=== PATIENT | male | born 1945 | race Caucasian/White ===

== ENCOUNTER 2019-11-19 11:42 | Outpatient (CLI) | payer MEDICARE ==
[2019-11-19 14:14] LABS: #Basophils 0.1 thou/uL (0.0-0.2); #Eosinphils 0.4 thou/uL (0.0-0.7); #Lymphocytes 1.5 thou/uL (1.20-3.40); #Monocytes 0.8 thou/uL (0.11-0.59); #Neutrophils 4.5 thou/uL (1.40-6.50); %Basophils 0.9 % (0.0-1.0); %Eosinophils 5.3 % (0.0-10.0); %Lymphocytes 20.7 % (21.0-51.0); %Monocytes 11.5 % (0.0-10.0); %Neutrophils 61.6 % (42.0-75.0); Hemoglobin 16.5 g/dL (14.0-18.0); Mean Corpuscular HGB CONC 34.7 g/dL (32.0-36.0); Mean Corpuscular Hemoglobin 32.6 pg (27.0-31.0); Mean Corpuscular Volume 93.8 fL (78.0-98.0); Mean Platelet Volume 9.4 fL (7.4-10.4); Platelet Count 193 thou/uL (130-400); RBC Distribution Width 12.2 % (11.5-14.5); Red Blood Cell (RBC) Count 5.06 mill/uL (4.70-6.10); White Blood Cell (WBC) Count 7.2 thou/uL (4.8-10.8)
[2019-11-19 14:25] LABS: ALT (SGPT) 25 U/L (8-55); AST (SGOT) 24 U/L (5-34); Albumin 4.6 g/dL (3.4-4.8); Alkaline Phosphatase 63 U/L (40-110); Anion Gap 15 mmol/L (10-20); BUN (Urea Nitrogen) 27 mg/dL (8.4-25.7); Bilirubin, Total 1.2 mg/dL (0.2-1.2); Calc. Creatinine Clearance 0 mL/min (70-130); Calcium 9.7 mg/dL (7.8-10.44); Carbon Dioxide 21 mmol/L (23-31); Chloride 104 mmol/L (98-107); Estimated GFR-MDRD 53; Globulin 2.6 g/dL (2.4-3.5); Glucose 86 mg/dL (83-110); Potassium 4.6 mmol/L (3.5-5.1); Protein, Total 7.2 g/dL (5.8-8.1); Sodium 135 mmol/L (136-145)
--- NOTE | 2019-11-20 14:41 | EKG ---
Test Reason : Blood Pressure : / mmHG Vent. Rate : 056 BPM Atrial Rate : 056 BPM P-R Int : 180 ms QRS Dur : 086 ms QT Int : 428 ms P-R-T Axes : 007 044 -27 degrees QTc Int : 413 ms Sinus bradycardia Anterior infarct , age undetermined cannot be excluded T wave abnormality, consider inferior ischemia Abnormal ECG Confirmed by LESA MENDOZA ([id number]) on 11/20/2019 2:41:12 PM Referred By: DENYS Confirmed By:LESA MENDOZA
== END 2019-11-19 11:43 | disposition home or self-care (01) ==
LOC: LABBT 11:42
PROVIDERS: ATTEND Surgery
DX: Z01.818 Encounter for other preprocedural examination (principal); K40.20 Bilateral inguinal hernia, without obstruction or gangrene, not specified as recurrent
CPT/HCPCS: 80053; 85025; 93005; 93010

== ENCOUNTER 2019-11-22 07:00 | Day surgery (SDC) | payer MEDICARE ==
[2019-11-19 11:43] VITALS: BMI 26.6
[2019-11-22] MEDS ORDERED: Bupivacaine 0.25% HCL 30 ML VIAL ONE (08:34)
[2019-11-22] MEDS ORDERED: Lidocaine 1% w/Epinephrine 1:100K 20 ML VIAL ONE (08:34)
[2019-11-22] MEDS ORDERED: Fentanyl 100 MCG/2 ML VIAL ONE ×2 (08:39→10:56)
[2019-11-22] MEDS ORDERED: Midazolam HCl 2 mg/2 ml Vial ONE (08:39)
--- NOTE | 2019-11-22 13:26 | OP ---
DATE OF PROCEDURE: 11/22/2019 PREOPERATIVE DIAGNOSIS: Bilateral inguinal hernia. PROCEDURE PERFORMED: Diagnostic laparoscopy, open bilateral inguinal hernia repair. INDICATIONS FOR PROCEDURE: A 74-year-old male, who had painful bilateral inguinal hernias that were getting worse. He had had a previous appendectomy through a paramedian incision. FINDINGS: He had dense adhesions intraabdominally preventing laparoscopic repair, went ahead and did a bilateral open procedure. DESCRIPTION OF PROCEDURE: After informed consent was obtained, the patient was taken to the operating room, given general endotracheal anesthesia, placed in the supine position. His abdomen was prepped and draped in usual fashion. Local anesthesia was infiltrated subcutaneously and deep. A 5 mm incision was performed, left lateral abdomen. Veress needle was inserted, drop test was performed. Pneumoperitoneum was created to a volume of 2 L of carbon dioxide. Utilizing a bladeless 5-mm trocar and 0-degree laparoscope, direct visual entry into abdominal cavity was performed. Pneumoperitoneum was created to a pressure of 15 mmHg and a 0-degree 5 mm scope inserted. Unfortunately, he had extensive adhesions intraabdominally. For this reason, we elected to abort the laparoscopic approach and go ahead and do bilateral open inguinal hernia repairs. Starting on the left, local anesthesia was infiltrated subcutaneously and deep. A transverse inguinal incision was performed, subcu was divided sharply. The fascia of external oblique was incised in direction of its fibers through the external ring. Spermatic cord was isolated with a Liberty drain. There was quite a large left inguinal hernia that was an indirect left inguinal hernia. The hernia sac was dissected from surrounding cord structures down to the internal ring and reduced. Reduction was maintained utilizing a PHS hernia system. The posterior layer was placed in the preperitoneal space, anterior was laid out, sutured to the pubic tubercle medially with a 2-0 V-Loc PDS, tucked under the external oblique fascia laterally. Then, the cord was placed anatomic, hemostasis was assured. The external oblique fascia was closed over the cord with a running 3-0 Vicryl. Madan was closed with interrupted 3-0 Vicryl and skin closed with a running subcuticular 4-0 Rapide. Then moved to the right. Again, local anesthesia was infiltrated subcutaneously and deep. A transverse inguinal incision was performed, subcu was divided sharply. The fascia of external oblique was incised in direction of its fibers through the external ring. Spermatic cord was isolated with a Liberty drain. At this time, the cord was skinny. There was no indirect component, a large direct inguinal hernia. This was circumscribed and reduced. Reduction was maintained utilizing a PHS hernia system. Posterior layer was placed in the preperitoneal space. The anterior was laid out, sutured to the pubic tubercle with a 2-0 V-Loc, tucked under the external oblique fascia laterally. Hemostasis was assured. External oblique fascia was closed with a running 3-0 Vicryl. Madan was closed with interrupted 3-0 Vicryl and the skin was closed with a running subcuticular 4-0 Rapide. Steri-Strips applied. Sterile bandage applied. The patient tolerated the procedure well, transferred to Recovery in good condition. Sponge and needle count verified correct x2. Job ID: [id number]
[2019-11-22] MEDS ORDERED: Glycopyrrolate 0.2 MG/ML 5 ML SYRINGE ONE (13:50)
[2019-11-22] MEDS ORDERED: Succinylcholine Chloride 20 MG/ML 10 ml SYRINGE FS ONE (13:50)
[2019-11-22] MEDS ORDERED: Ondansetron PF 4 MG/2 ML Vial ONE (13:50)
[2019-11-22] MEDS ORDERED: Ketorolac Tromethamine 30 MG/ML VIAL ONE (13:50)
[2019-11-22] MEDS ORDERED: Rocuronium Bromide 10 MG/ML (10ML VIAL) ONE (13:50)
[2019-11-22] MEDS ORDERED: Lidocaine 1% PF 5 ML VIAL ONE (13:50)
[2019-11-22] MEDS ORDERED: Dexamethasone 20 MG/5 ML VIAL ONE (13:50)
[2019-11-22] MEDS ORDERED: PROPOFOL 200 MG/20 ML VIAL ONE (13:50)
== END 2019-11-22 12:53 | disposition home or self-care (01) ==
LOC: SDC 07:00
PROVIDERS: ATTEND Surgery
PROC: 0YUA0JZ Supplement Bilateral Inguinal Region with Synthetic Substitute, Open Approach (ICD-10-PCS; principal; 2019-11-22)
DX: K40.20 Bilateral inguinal hernia, without obstruction or gangrene, not specified as recurrent (principal); K66.0 Peritoneal adhesions (postprocedural) (postinfection); I10 Essential (primary) hypertension; F17.200 Nicotine dependence, unspecified, uncomplicated; Z53.31 Laparoscopic surgical procedure converted to open procedure; Z79.1 Long term (current) use of non-steroidal anti-inflammatories (NSAID); Z79.899 Other long term (current) drug therapy; Z88.5 Allergy status to narcotic agent
CPT/HCPCS: C1781; J0690; J2250; J3010; S0020